=== PATIENT | male | born 2000 | race Two or more races ===

== ENCOUNTER 2024-07-05 09:37 | Emergency (ER) | payer OTHER, SELFPAY ==
[2024-07-05 09:46] VITALS: BP 117/79; PULSE 79; RESP 18; TEMP 37.1; O2SAT 99; BMI 25.8
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
== END 2024-07-05 10:17 ==
LOC: SERX 10:11
PROVIDERS: Emergency Provider Emergency Medicine
DX: Z02.89 Encounter for other administrative examinations (principal); Z04.1 Encounter for examination and observation following transport accident
CPT/HCPCS: 99281